=== PATIENT | female | born 1995 | race Caucasian/White ===

== ENCOUNTER 2017-06-28 18:57 | Emergency (ER) | payer OTHER ==
[~2017-06-28] VITALS: Ht 154.9 cm; Wt 52.2 kg
[~2017-06-28 18:57] MED LIST: APAP500; DERMOPLAST SPRA56 ML; HYDROCORTISONE30 G9; IBUPROFEN 800800 M1; LANOLIN56 GM; NOHOMEMEDICATIONS; NORCO 5-325 TA1 EACH PO; PRENATAL; PRENATAL COMPL1 EACH PO; REGLAN 5 MG TAB5 M1 PO; TUCKS MEDICATE1 EAC1; ZOFRAN ODT4 MG PO
[2017-06-28 19:58] LABS: HEMATOCRIT 42.6 % (37.0-47.0); HEMOGLOBIN 14.6 gm/dL (12.0-15.0); MCH 33.2 pg (26.0-34.0); MCHC 34.3 g/dL (28.0-37.0); MCV 96.6 fL (80.0-100.0); RBC 4.41 mil/uL (4.20-5.00); RDW 12.9 % (10.5-14.5); WBC 7.3 thou/uL (4.0-11.0)
[2017-06-28 20:02] LABS: CALCIUM 9.3 mg/dL (8.5-10.1); CREATININE 0.5 mg/dL (0.6-1.0); POTASSIUM 3.7 mmol/L (3.5-5.1)
[2017-06-28 20:08] LABS: ALBUMIN 4.2 g/dL (3.4-5.0); TOTAL BILIRUBIN 0.4 mg/dL (<0.1-1.0); TOTAL PROTEIN 7.5 g/dL (6.4-8.2)
[2017-06-28 20:11] LABS: AMP/METHAMP Negative (Negative); BARBITURATES Negative (Negative); BENZODIAZEPINES Negative (Negative); COCAINE Negative (Negative); METHADONE Negative (Negative); OPIATES Negative (Negative); PCP Negative (Negative); THC POSITIVE (Negative)
[2017-06-28 20:49] VITALS: BP 108/63
== END 2017-06-28 20:49 | disposition home or self-care (01) ==
LOC: ER 18:57
PROVIDERS: Physician Assistant
DX: G40.89 Other seizures (principal); F17.210 Nicotine dependence, cigarettes, uncomplicated; F10.99 Alcohol use, unspecified with unspecified alcohol-induced disorder; Z88.1 Allergy status to other antibiotic agents; Z88.5 Allergy status to narcotic agent